=== PATIENT | female | born 1960 | race Caucasian/White ===

== ENCOUNTER 2020-08-03 12:59 | Emergency (ER) | payer MEDICARE, MEDICAID ==
[~2020-08-03] VITALS: Ht 167.6 cm; Wt 79.3 kg
[2020-08-03 13:07] VITALS: BP 194/97
[2020-08-03] MEDS ORDERED: ATEN-55 PO (14:06)
[2020-08-03] MEDS ORDERED: AMLO10TA48 PO (14:06)
== END 2020-08-03 14:22 | disposition home or self-care (01) ==
LOC: ER 13:00
DX: Z00.00 Encounter for general adult medical examination without abnormal findings (principal); Z76.0 Encounter for issue of repeat prescription; I10 Essential (primary) hypertension; F15.90 Other stimulant use, unspecified, uncomplicated; Z79.899 Other long term (current) drug therapy
CPT/HCPCS: 99281; 99283